=== PATIENT | female | born 1980 | race African-American/Black ===

== ENCOUNTER 2016-05-28 05:57 | Day surgery (SDC) | payer OTHER ==
[2016-05-28] MEDS ORDERED: ACETAMINOPHEN 1,000 MG/100 ML 100 ML IV ONE (06:20)
[2016-05-28] MEDS ORDERED: CELECOXIB 100 MG CAPSULE PO ONE (06:21)
[2016-05-28] MEDS ORDERED: LACTATED RINGERS 1,000 ML IV ONE (06:55)
[2016-05-28] MEDS ORDERED: fentaNYL 100 MCG/2 ML VIAL IVP ONE (07:30)
[2016-05-28] MEDS ORDERED: LIDOCAINE-MPF 2% 5 ML VIAL IM ONE (07:30)
[2016-05-28] MEDS ORDERED: DEXAMETHASONE 4 MG/ML VIAL IVP ONE (07:30)
[2016-05-28] MEDS ORDERED: MIDAZOLAM 2 MG/2 ML VIAL IVP ONE (07:30)
[2016-05-28] MEDS ORDERED: PROPOFOL 200 MG/20 ML VIAL IVP ONE (07:30)
[2016-05-28] MEDS ORDERED: ONDANSETRON 4 MG/2 ML VIAL IVP ONE (07:30)
[2016-05-28] MEDS ORDERED: VANCOMYCIN INJ 1 GM in SODIUM CHLORIDE 0.9% 250 ML IV SCH (08:00)
[2016-05-28] MEDS ORDERED: ROPIVACAINE 0.2% PF 10 ML VIAL EPI ONE (08:35)
[2016-05-28] MEDS ORDERED: BUPIVACAINE 0.5% PF 10 ML VIAL IM ONE (08:36)
[2016-05-28] MEDS ORDERED: MORPHINE PF 5 MG/10 ML AMP EPI ONE (08:36)
[2016-05-28] MEDS ORDERED: oxyCOD/ACETAMIN 5 MG/325 MG TABLET PO ONE (10:41)
== END 2016-05-28 05:58 | disposition home or self-care (01) ==
PROC: 0SBC4ZZ Excision of Right Knee Joint, Percutaneous Endoscopic Approach (ICD-10-PCS; principal; 2016-05-28 07:30)
DX: M26.81 Anterior soft tissue impingement (principal); M25.861 Other specified joint disorders, right knee; I10 Essential (primary) hypertension; J45.909 Unspecified asthma, uncomplicated
CPT/HCPCS: 29877; 81025; 97161; A9270; J0131; J3370; J7120

== ENCOUNTER 2017-07-18 14:45 | Outpatient (CLI) | payer OTHER | END 2017-07-18 14:46 | disposition home or self-care (01) | LOC: SC 14:45 | PROVIDERS: ATTEND Internal Medicine Pulmonary Disease | DX: G47.33 Obstructive sleep apnea (adult) (pediatric) (principal) | CPT/HCPCS: 99203; 99212 ==

== ENCOUNTER 2017-08-28 19:09 | Outpatient (CLI) | END 2017-08-28 19:10 | disposition home or self-care (01) ==

== ENCOUNTER 2017-09-27 09:59 | Outpatient (CLI) | payer OTHER | END 2017-09-27 10:00 | disposition home or self-care (01) | LOC: SC 09:59 | PROVIDERS: ATTEND Nurse Practitioner Family | DX: R06.83 Snoring (principal); R53.83 Other fatigue; G47.10 Hypersomnia, unspecified | CPT/HCPCS: 99212; 99214 ==

== ENCOUNTER 2018-06-28 19:50 | Emergency (ER) | payer OTHER ==
[2018-06-28] MEDS ORDERED: diphenhydrAMINE INJ 50 MG/ML VIAL IM STA (20:00)
[2018-06-28] MEDS ORDERED: KETOROLAC 60 MG/2 ML VIAL IM STA (20:00)
[2018-06-28] MEDS ORDERED: PROCHLORPERAZINE 10 MG/2 ML VIAL IM STA (20:01)
--- NOTE | 2018-06-28 20:06 | ED Physician Documentation ---
PD HPI HEADACHE - Stated complaint Stated Complaint: [facility] - Chief complaint Chief Complaint: Neuro - History obtained from History obtained from: Patient - History of Present Illness Timing - onset: Today Timing - onset during: Rest Timing - duration: Hours (4) Timing - details: Gradual onset Pain level max: 10 Pain level now: 10 Worst headache ever?: No: Worst headache ever? Location: Global Quality: Throbbing, Aching. No: Thunderclap Associated symptoms: Nausea. No: Fever, Stiff neck, Vomiting, Weakness, Numbness, Syncope Improved by: Rest Worsened by: Light, Noise, Moving Contributing factors: No: Anticoagulated, Possible carbon monoxide, Hypertension, Recent illness, Trauma Similar symptoms before: Diagnosis (migraines) Recently seen: Not recently seen - Additional information Additional information: took imitrex without relief Review of Systems Constitutional: denies: Fever, Chills Nose: denies: Rhinorrhea / runny nose, Congestion GI: reports: Nausea Skin: denies: Rash Musculoskeletal: denies: Neck pain, Back pain Neurologic: reports: Headache PD PAST MEDICAL HISTORY - Past Medical History Cardiovascular: Hypertension Respiratory: Asthma, Sleep apnea Endocrine/Autoimmune: None GI: None : None HEENT: Chronic vision loss Psych: None Musculoskeletal: Other Derm: None - Past Surgical History Past Surgical History: Yes Ortho: 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 - Present Medications Home Medications: Ambulatory Orders Medication Instructions Recorded Confirmed Verapamil ER [[facility]] 180 mg PO DAILY 05/26/16 05/28/16 - Allergies Allergies/Adverse Reactions: Allergies Allergy/AdvReac Type Severity Reaction Status Date / Time No Known Drug Allergies Allergy Verified 06/28/18 19:55 - Social History Does the pt smoke?: No Smoking Status: Never smoker Does the pt drink ETOH?: No Does the pt have substance abuse?: No - Immunizations Immunizations are current?: Yes PD ED PE NORMAL - Vitals Vital signs reviewed: Yes - General General: Alert and oriented X 3, No acute distress - HEENT HEENT: Atraumatic, PERRL, EOMI, Moist mucous membranes - Neck Neck: Supple, no meningeal sign - Cardiac Cardiac: RRR, Strong equal pulses - Respiratory Respiratory: No respiratory distress, Clear bilaterally - Abdomen Abdomen: Soft, Non tender, Non distended - Derm Derm: Warm and dry - Neuro Neuro: Alert and oriented X 3, surface grinder tender 2-12 intact, No motor deficit, No sensory deficit, Normal speech - Psych Psych: Normal mood, Normal affect Results - Vitals Vitals: Vital Signs - 24 hr 06/28/18 06/28/18 19:52 20:04 Temperature 36.6 C Heart Rate 81 Respiratory 18 Rate Blood Pressure 137/65 H O2 Saturation 100 Oxygen O2 Source Room air PD MEDICAL DECISION MAKING - ED course Complexity details: reviewed results, re-evaluated patient, considered differential, d/w patient ED course: 37-year-old female with her usual migraine headache. Given Toradol, Compazine, Benadryl. Slept in the emergency department and feels better. Like to go home at this time. Will follow up with her doctor for further care. No evidence of tumor, subarachnoid hemorrhage etc. Patient counseled regarding signs and symptoms for which I believe and urgent re-evaluation would be necessary. Patient with good understanding of and agreement to plan and is comfortable going home at this time This document was made in part using voice recognition software. While efforts are made to proofread this document, sound alike and grammatical errors may occur. Departure - Departure Disposition: 01 Home, Self Care Clinical Impression: Migraine Qualifiers: Migraine type: unspecified Status migrainosus presence: without status migrainosus Intractability: not intractable Qualified Code(s): G43.909 - Migraine, unspecified, not intractable, without status migrainosus Condition: Good Instructions: ED Headache Migraine Follow-Up: Alberto Escobar MD [Primary Care Provider] - Within 1 week Comments: Go home and rest. Return if you worsen. Forms: Activity restrictions
[2018-06-28 20:59] VITALS: BP 144/96
== END 2018-06-28 21:07 | disposition home or self-care (01) ==
LOC: ED 19:50
DX: G43.909 Migraine, unspecified, not intractable, without status migrainosus (principal); I10 Essential (primary) hypertension
CPT/HCPCS: 96372; 99283; 99284; J1200

== ENCOUNTER 2018-10-27 18:46 | Outpatient (CLI) | payer OTHER ==
--- NOTE | 2018-10-31 21:10 | MRI Report ---
Reason: JOINT DISORDER, UNSPECIFIED Procedure Date: 10/27/2018 Accession Number: [id number] / [id number] Procedure: MRI - Knee RT W/O CPT Code: FULL RESULT: EXAM: RIGHT KNEE MRI WITHOUT CONTRAST EXAM DATE: 10/27/2018 07:36 PM. CLINICAL HISTORY: History of arthroscopy with OATS surgery. COMPARISON: None. TECHNIQUE: Multiplanar, multisequence T1-weighted and fluid-sensitive sequences of the knee without contrast. Other: None. FINDINGS: Bones: No fractures or subluxations. No marrow edema. No bone lesions. 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 There are multiple 1-2 mm cysts at the margins of the osteochondral graft, with the graft otherwise appearing well incorporated. The articular of the osteochondral graft is congruent with the articular cartilage at the lateral femoral condyle. No discrete cartilage loss or cartilage fissuring at the autograft or at the interface between the autograft in the [place] lateral femoral condyle articular cartilage. There has been fibrocartilage ingrowth at the lateral margin of the femoral trochlea. Articular cartilage at the knee is otherwise normal. Medial Meniscus: The medial meniscus is intact. Lateral Meniscus: The lateral meniscus is intact. Cruciate Ligaments: The anterior and posterior cruciate ligaments are intact. Collateral Ligaments: The medial collateral and lateral collateral ligamentous structures are intact. Tendons: The quadriceps, patellar, semimembranosus, and popliteus tendons are unremarkable. Musculature: No edema or fatty atrophy. Other: No effusion. No popliteal cyst. No loose bodies. The medial and lateral retinacula are intact. The subcutaneous tissues and fat pads are unremarkable. 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 There has been fibrocartilage ingrowth at the graft harvest site at the lateral margin of the femoral trochlea. [facility]
== END 2018-10-27 18:47 | disposition home or self-care (01) ==
LOC: DI 18:46
PROVIDERS: ATTEND Orthopaedic Surgery
DX: M25.9 Joint disorder, unspecified (principal)